=== PATIENT | male | born 1970 | race Caucasian/White ===

== ENCOUNTER → 2024-07-31 11:07 | Outpatient (REF) | payer OTHER, SELFPAY ==
[2024-07-31 13:15] LABS: Rubella Positive
[2024-07-31 13:38] LABS: Hepatitis B Surface Antibody Negative
[2024-08-02 18:44] LABS: Quantiferon Mitogen minus NIL 9.96 IU/mL; Quantiferon NIL 0.04 IU/mL; Quantiferon TB Gold Plus Negative (Negative)
== END ==
LOC: OHS 11:07
PROVIDERS: ATTENDING PHYSICIAN Nurse Practitioner Family
DX: Z23 Encounter for immunization (principal)
CPT/HCPCS: 36415; 86480; 86706; 86735; 86762; 86765; 86787